=== PATIENT | female | born 1980 | race American Indian/Alaskan Native ===

== ENCOUNTER 2016-10-06 16:55 | Emergency (ER) | payer OTHER ==
[2016-10-06] MEDS ORDERED: MOTRIN PO ONE (22:06)
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
[2016-10-06 22:34] VITALS: BP 132/78
== END 2016-10-06 22:35 | disposition home or self-care (01) ==
LOC: ED 16:55
DX: M25.511 Pain in right shoulder (principal); M25.512 Pain in left shoulder; M79.1 Myalgia; V49.49XA Driver injured in collision with other motor vehicles in traffic accident, initial encounter; Y93.9 Activity, unspecified; Y92.9 Unspecified place or not applicable; Y99.9 Unspecified external cause status
CPT/HCPCS: 99282